=== PATIENT | male | born 1945 | race Caucasian/White ===

== ENCOUNTER 2016-05-13 10:17 | Day surgery (SDC) | payer BC, MEDICARE ==
[2016-05-13] MEDS ORDERED: LIDOCAINE 2% MDV (20MG/ML) 20ML VIAL IV ONE (14:50)
[2016-05-13] MEDS ORDERED: PROPOFOL 10 MG/ML VIAL IV ONE (14:50)
[2016-05-13] MEDS ORDERED: GLUCAGON 1 MG/VIAL IV ONE (14:50)
[2016-05-13] MEDS ORDERED: MIDAZOLAM HCL 2MG/2ML VIAL IV ONE (14:50)
--- NOTE | 2016-05-13 14:54 | Operative Note ---
DATE OF SURGERY: 05/13/2016. REFERRING PHYSICIAN: Perry Lovelace D.O. PROCEDURE: Incomplete colonoscopy. INDICATION: Colorectal cancer screening. HISTORY: The patient is a pleasant 70-year-old gentleman who presented today for anticipated colonoscopy for screening purposes. His last examination was more than ten years ago. He had diverticulosis noted at that time. Colonoscopy was performed at this time for screening. ANESTHESIA: Intravenous sedation was administered by the Department of Anesthesiology and included Diprivan titrated to effect. PROCEDURE: Following informed consent from this alert individual, including a discussion of the risks and benefits of the procedure and an opportunity for the patient to ask questions, the patient was in the left lateral decubitus position. A digital rectal examination was performed. No abnormalities were noted. Following this, the Olympus PCF-180 video colonoscope was inserted into the rectum without resistance. The rectal mucosa had a normal appearance with normal folds and distensibility. The sigmoid colon was cannulated and demonstrated extensive diverticulosis. Multiple attempts at passing the colonoscope through the sigmoid colon were unsuccessful despite the use of glucagon intravenously. After several minutes passed trying to advance the endoscope through the sigmoid colon, the procedure was curtailed. The endoscope was then withdrawn. Retroflexion in the rectum was endoscopically normal. The endoscope was removed. The patient tolerated the procedure well and was returned to the recovery area in stable condition. The colon preparation was good. IMPRESSION: Extensive sigmoid diverticulosis with inability to advance the colonoscope through the sigmoid colon due to the diverticulosis itself. RECOMMENDATIONS: I did recommend the patient have a barium enema x-ray to evaluate the colon, and he will pursue this in the near future. BRIANNA ALATORRE D.O. Date Time JOB NUMBER: [id number] cc: Perry Lovelace D.O. [facility]IMIN[facility] INSANEJessy
== END 2016-05-13 12:04 | disposition home or self-care (01) ==
LOC: HOP 10:17
PROVIDERS: ATTEND Internal Medicine Gastroenterology
DX: Z12.11 Encounter for screening for malignant neoplasm of colon (principal); K57.30 Diverticulosis of large intestine without perforation or abscess without bleeding; E78.00 Pure hypercholesterolemia, unspecified; I10 Essential (primary) hypertension; E11.9 Type 2 diabetes mellitus without complications; Z79.4 Long term (current) use of insulin
CPT/HCPCS: 00810; G0121; J1610

== ENCOUNTER 2018-03-16 09:54 | Day surgery (SDC) | payer BC, MEDICARE ==
[2018-03-16] MEDS ORDERED: PROPOFOL 10 MG/ML VIAL IV ONE (09:55)
[2018-03-16] MEDS ORDERED: LIDOCAINE 2% MDV (20MG/ML) 20ML VIAL IV ONE (09:55)
--- NOTE | 2018-03-17 10:30 | Operative Note ---
DATE OF SURGERY: 03/16/2018 OPERATION: INCOMPLETE COLONOSCOPY, FLEXIBLE SIGMOIDOSCOPY. INDICATION: Colorectal cancer screening. HISTORY: The patient had a sigmoidoscopy almost 2 years ago at which time the examination was incomplete due to extensive diverticulosis and tortuosity of the sigmoid colon. He ultimately had a barium enema study at that time which as visualized was unremarkable. There were small amounts of retained stool noted. No large polyps were seen. He returns at this time for further evaluation although it is not clear how the actual referral was made for this exam. ANESTHESIA: Intravenous sedation was administered by the department of anesthesiology and included Diprivan titrated to effect. PROCEDURE: Following informed consent from this alert individual including a discussion of the risks and benefits of the procedure and an opportunity for the patient to ask questions, the patient was in the left lateral decubitus position. A digital rectal examination was performed. No abnormalities were noted. Following this, the Olympus [id number] video colonoscope was inserted into the rectum without resistance. The rectal mucosa had a normal appearance with normal folds and distensibility. The colonoscope was advanced up through the sigmoid colon where extensive diverticulosis and redundancy were again noted. At this point in the examination, the patient started bringing up some gastric secretions and for this reason the endoscope was then withdrawn. The patient never experienced any desaturation and his oxygen saturation, in fact, remained 98 throughout. He tolerated the procedure otherwise quite well and was returned to the recovery area in stable condition. IMPRESSION: Extensive sigmoid diverticulosis with redundancy and inability to advance through this area. RECOMMENDATIONS: I had a long discussion with the patient and his family member. I explained that it is extremely difficult to complete a colonoscopy because of the extensive diverticulosis and redundancy of the colon. I explained that his barium enema looked okay a few years ago and wound recommend a repeat study in another 3-4 years for screening purposes. Followup will be with Dr. Lovelace. As always, thank you for allowing me to participate in the care of your patient. CC: DO QUIANA Crawford
== END 2018-03-16 12:45 | disposition home or self-care (01) ==
LOC: HOP 09:54
PROVIDERS: ATTEND Internal Medicine Gastroenterology
DX: Z12.11 Encounter for screening for malignant neoplasm of colon (principal); K57.30 Diverticulosis of large intestine without perforation or abscess without bleeding; E11.9 Type 2 diabetes mellitus without complications; E78.00 Pure hypercholesterolemia, unspecified; I10 Essential (primary) hypertension
CPT/HCPCS: 00811; G0104